=== PATIENT | female | born 1955 | race Caucasian/White ===

== ENCOUNTER 2020-09-13 19:10 | Emergency (ER) | payer MEDICARE ==
[~2020-09-13] VITALS: Ht 165.1 cm; Wt 75.0 kg
[2020-09-13 20:03] LABS: BASOPHILS % (AUTO) 2 % (0-1); EOSINOPHILS % (AUTO) 1 % (1-7); LYMPHOCYTES % (AUTO) 39 % (22-44); MEAN CORPUSCULAR HEMOGLOBIN 33.1 pg (27.0-34.8); MEAN CORPUSCULAR HGB CONC 34.2 g/dL (32.4-35.8); MEAN PLATELET VOLUME 7.9 fL (7.4-10.4); MONOCYTES % (AUTO) 8 % (2-9); NEUTROPHILS % (AUTO) 51 % (42-75); PLATELET COUNT 284 x10^3/uL (130-400); RED BLOOD COUNT 4.89 x10^6/uL (3.82-5.3); RED CELL DISTRIBUTION WIDTH 12.9 % (9.6-15.2)
[2020-09-13 20:09] LABS: ALBUMIN 4.2 g/dL (3.4-5.0); ANION GAP 4 mmol/L (5-15); CALCIUM 10.7 mg/dL (8.5-10.1); CHLORIDE 107 mmol/L (98-107); CREATININE 0.99 mg/dL (0.55-1.02); MD NO
[2020-09-13 20:12] LABS: TROPONIN I < 0.015 ng/mL (0.000-0.045)
--- NOTE | 2020-09-13 20:46 | NUR ---
PT TO ROOM AT 2034
--- NOTE | 2020-09-13 21:15 | NUR ---
PT STATES HER CHEST FEELS "COLD." THIS RN CLARIFIED THAT IT FEELS "CHILLY, NOT LIKE SHE HAS A COLD WITH A COUGH." PT AGREES, HER CHEST FEELS "CHILLY." PT HAS A HX OF AXIETY. PT STATES SHE'S BEEN UNDER A LOT OF STRESS LATELY, PT FIDGETY IN BED.
--- NOTE | 2020-09-13 21:16 | NUR ---
PT REMAINS CONNECTED TO ALL MONITORS. CALL LIGHT IN REACH AND VISITOR AT BEDSIDE.
[2020-09-13] MEDS ORDERED: LORazepam 1MG TABLET PO ONE (21:30)
[2020-09-13] MEDS ORDERED: LORazepam 1MG TABLET ONE (21:58)
[2020-09-13 22:28] VITALS: BP 120/77
== END 2020-09-13 22:33 ==
LOC: ED 22:27
DX: R07.89 Other chest pain (principal); F41.1 Generalized anxiety disorder; R94.31 Abnormal electrocardiogram [ECG] [EKG]
CPT/HCPCS: 36415; 71046; 80048; 82040; 84484; 85025; 93005; 99285